=== PATIENT | male | born 1965 | race Caucasian/White ===

== ENCOUNTER 2017-06-15 08:41 | Emergency (ER) | payer MEDICAID, OTHER ==
[2017-06-15] MEDS ORDERED: MORPHINE SULFATE 4 MG/ML SYRG ONE ×2 (08:59→09:36)
[2017-06-15] MEDS ORDERED: ONDANSETRON HCL/PF 2 MG/ML VIAL ONE (08:59)
[2017-06-15] MEDS ORDERED: MORPHINE SULFATE 4 MG/ML SYRG IV ONE ×2 (09:00→09:35)
[2017-06-15] MEDS ORDERED: ONDANSETRON HCL/PF 2 MG/ML VIAL IV ONE (09:00)
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
[2017-06-15 09:13] LABS: Hematocrit 44.7 % (42.0-52.0); Hemoglobin 15.7 gm/dL (13.5-18.0); Mean Cell Volume 90.5 fl (78-100); Mean Corpuscular Hemoglobin 31.8 pg (27-31); Mean Corpuscular Hgb Conc 35.1 g/dl (32-36); Mean Platelet Volume 10.7 fl (6.0-9.5); Neutrophil % 71.2 % (42-75.0); Platelet Count 194 K/mm3 (150-450); Red Blood Count 4.94 M/mm3 (4.7-6.0); Red Cell Distribution Width 12.6 % (11.5-14.0); White Blood Count 9.8 K/mm3 (4.0-10.5)
[2017-06-15 09:26] LABS: ALT 52 U/L (19-67); AST 39 U/L (0-48); Albumin * 3.8 gm/dl (3.4-5.0); Alkaline Phosphatase * 132 U/L (50-170); BUN/Creatinine Ratio 11.9 (9.0-21.6); Bilirubin, Total 1.3 mg/dL (0.0-1.1); Blood Urea Nitrogen 12 mg/dL (6-23); Ca. Corrected For Albumin 8.9 mg/dL (8.4-10.2); Calcium * 9.1 mg/dL (7.9-10.9); Carbon Dioxide 29.4 mmol/L (24-32.6); Chloride 102 mmol/L (97-106); Glucose * 110 mg/dL (70-110); Potassium 4.4 mmol/L (3.4-4.6); Sodium 139 mmol/L (132-142); Total Protein 7.4 gm/dL (6.2-8.2)
[2017-06-15] MEDS ORDERED: KETOROLAC TROMETHAMINE 30 MG/ML VIAL IV ONE (09:45)
[2017-06-15] MEDS ORDERED: KETOROLAC TROMETHAMINE 30 MG/ML VIAL ONE (10:07)
[2017-06-15 11:51] VITALS: BP 133/76
== END 2017-06-15 10:45 | disposition home or self-care (01) ==
LOC: ER 08:41
DX: S22.040A Wedge compression fracture of fourth thoracic vertebra, initial encounter for closed fracture (principal); F17.200 Nicotine dependence, unspecified, uncomplicated; V86.55XA Driver of 3- or 4- wheeled all-terrain vehicle (ATV) injured in nontraffic accident, initial encounter; Y93.I9 Activity, other involving external motion
CPT/HCPCS: 36415; 70450; 72125; 72128; 80053; 85025; 86850; 86900; 96374; 96375; 99284; G0481; J2405

== ENCOUNTER 2017-07-12 09:48 | Emergency (ER) | payer OTHER ==
[2017-07-12] MEDS ORDERED: KETOROLAC TROMETHAMINE 60 MG/2 ML VIAL IM ONE ×2 (10:22→11:21)
[2017-07-12] MEDS ORDERED: ORPHENADRINE CITRATE 30 MG/ML VIAL IM ONE (10:23)
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
[2017-07-12] MEDS ORDERED: ORPHENADRINE CITRATE 30 MG/ML VIAL ONE (11:21)
[2017-07-12 12:01] VITALS: BP 107/77
== END 2017-07-12 12:02 | disposition home or self-care (01) ==
LOC: ER 09:48
DX: M62.830 Muscle spasm of back (principal); R93.7 Abnormal findings on diagnostic imaging of other parts of musculoskeletal system; S22.040D Wedge compression fracture of fourth thoracic vertebra, subsequent encounter for fracture with routine healing; F17.200 Nicotine dependence, unspecified, uncomplicated